=== PATIENT | female | born 1950 | race Caucasian/White ===

== ENCOUNTER → 2018-09-07 | Outpatient (CLI) | payer MEDICARE ==
--- NOTE | 2018-09-07 14:27 | PCVCIMAG ---
APPROVED REPORT Study performed: 09/07/2018 12:51:04 Exam: Stress Echocardiogram Indication: Chest pain, ABN EKG, HLP Patient Location: Echo lab Stress Nurse: Juanita Craig RN Status: routine Ht: 5 ft 3 in HR: 83 bpm BP: 134/92 mmHg Rhythm: NSR Procedure The patient underwent an Exercise Stress Test using the Adán Protocol. Blood pressure, heart rate, and EKG were monitored. An Echocardiogram was performed by compliance field technician in four stages in quad fashion. At peak stress, four selected images were obtained and placed side by side with resting images for comparison. Stress Test Details Stress Test: Exercise stress testing was performed using a Adán protocol. HR Resting HR: 76 bpmMax Heart Rate (APMHR): 152 bpm Max HR Achieved: 171 bpmTarget HR (85% APMHR): 129 bpm % of APMHR: 112 Recovery HR: 115 bpm HR response to stress: Normal HR response to stress BP Resting BP: 134/92 mmHg Max BP: 184/84 mmHg Recovery BP: 144/80 mmHg BP response to stress: Normal blood pressure response to stress. ECG Resting ECG: Sinus Rhythm, nonspecific ST-T abnormalities Stress ECG: Sinus Rhythm ST Change: Normal Arrhythmia: frequent PVCs Recovery ECG: Sinus Rhythm Recovery ST Change: Normal Recovery Arrhythmia: frequent PVCs Clinical Reason for Termination: Maximal effort Stress Symptoms: Dyspnea, chest pain that did not worsen with exertion Exercise duration: 8 min sec Highest Stage Achieved: Stage 3: 3.4 mph at 14% grade. Exercise capacity: 10.1 METs Overall Exercise Capacity for Age: Normal Scale: Active Angina Score: Non-Limiting Pre-Stress Echo The resting Echocardiogram showed normal left ventricular contractility with an estimated Ejection Fraction of about >55%. Normal wall motion in all segments on baseline images. Post-Stress Echo The stress Echocardiogram showed normal left ventricular contractility with an estimated Ejection Fraction of about 65%. Normal augmentation of wall motion in all segments on post stress images. Clinical No clinical or ECG evidence for ischemia. Conclusion Clinical Response: Non-ischemic Exercise Capacity: Average Stress ECG Response: Non-ischemic Stress Echo Images: Non-ischemic The left ventricle is normal in size and wall thickness in both the rest and stress images. Other Information Study Quality: Adequate <Conclusion> The left ventricle is normal in size and wall thickness in both the rest and stress images.
== END | disposition home or self-care (01) ==
LOC: PCVCIMAG 12:48
PROVIDERS: ATTEND Internal Medicine Cardiovascular Disease
DX: R07.9 Chest pain, unspecified (principal); R06.09 Other forms of dyspnea; R53.83 Other fatigue; E78.00 Pure hypercholesterolemia, unspecified; R94.31 Abnormal electrocardiogram [ECG] [EKG]; E78.5 Hyperlipidemia, unspecified; Z79.82 Long term (current) use of aspirin
CPT/HCPCS: 93005; 93325; 93351; G0463